=== PATIENT | male | born 1970 ===

== ENCOUNTER 2024-09-10 05:50 | Day surgery (SDC) | payer OTHER ==
[2024-09-04 08:05] LABS: BASO % 0.7 % (0.1-1.2); EOS # 0.16 (0.04-0.54); HEMATOCRIT 45.8 % (40.1-51.0); HEMOGLOBIN 15.4 g/dL (13.7-17.5); LYMPH # 2.75 (1.18-3.74); LYMPH % 33.9 % (19.3-53.1); MEAN CORPUSCULAR HEMOGLOBIN 29.7 pg (25.6-32.2); MONO # 0.76 (0.24-0.82); MONO % 9.4 % (4.7-12.5); NEUT # 4.37 (1.56-6.13); NEUT % 53.8 % (34.0-71.1); PLATELET COUNT 190 K/uL (163-369); RED BLOOD COUNT 5.18 M/uL (4.63-6.08); RED CELL DISTRIBUTION WIDTH 13.3 % (11.6-14.4)
[2024-09-04 08:15] LABS: PH,URINE 5.5 (5.0-8.0); URINE APPEARANCE Clear; URINE BILIRRUBIN Negative (NEGATIVE); URINE BLOOD Negative; URINE COLOR Yellow; URINE GLUCOSE Negative (NEGATIVE); URINE KETONE Negative (NEGATIVE); URINE LEUKOCYTE Negative; URINE NITRATE Negative; URINE PROTEIN Negative (NEGATIVE)
[2024-09-04 08:19] LABS: URINE BACTERIA 4.8 uL (0.0-1933); URINE WBC 2.3 uL (0.0-23.2)
[2024-09-04 08:26] LABS: INR 1.02; PARTIAL THROMBOPLASTIN TIME 24.3 SECONDS (22.0-34.0); PROTHROMBIN TIME 11.1 SECONDS (9.0-11.5)
[2024-09-04 08:33] LABS: URINE EPITHELIAL CELLS 0.6 uL (0.0-38.8); URINE RBC 1.1 uL (0.0-20.8)
[2024-09-04 08:46] VITALS: BP 143/87
[2024-09-04 09:08] LABS: ALBUMIN 3.9 gm/dL (3.4-5.0); BILIRUBIN TOTAL 0.48 mg/dL (0.3-1.2); CALCIUM 9.4 mg/dL (8.5-10.1); CREATININE SERUM 0.95 mg/dL (0.70-1.30); GFR 82.62; POTASSIUM 4.22 mEq/L (3.5-5.1); TOTAL PROTEIN 7.9 gm/dL (6.4-8.2)
[~2024-09-10] VITALS: Ht 177.8 cm; Wt 98.9 kg
[~2024-09-10 05:50] MED LIST: GLIPIZIDE5 MG PO; LOSARTAN-HCTZ1 EAC1 PO
[2024-09-10] MEDS ORDERED: CEFAZOLIN SODIUM 1,000 MG VIAL ONE (07:39)
[2024-09-10] MEDS ORDERED: LIDOCAINE HCL 1%/EPINEPHRINE 20ML VIAL IJ ONE ×2 (09:27→10:30)
[2024-09-10] MEDS ORDERED: BUPIVACAINE HCL/MPF 0.5% 30ML VIAL ONE (10:28)
[2024-09-10] MEDS ORDERED: KETOROLAC TROMETHAMINE 30 MG VIAL ONE (10:28)
[2024-09-10] MEDS ORDERED: BUPIVACAINE HCL 30 ML VIAL IJ ONE (10:30)
[2024-09-10] MEDS ORDERED: KETOROLAC TROMETHAMINE 60 MG VIAL IM ONE (10:30)
[2024-09-10] MEDS ORDERED: CEFAZOLIN SODIUM 1,000 MG VIAL IV ONE (10:30)
[2024-09-10] MEDS ORDERED: MORPHINE SULFATE 4 MG/ML VIAL IV ONE ×2 (11:40→12:10)
== END 2024-09-10 14:45 | disposition home or self-care (01) ==
LOC: CIR.AMB 05:50
PROVIDERS: ATTEND Orthopaedic Surgery
DX: M75.122 Complete rotator cuff tear or rupture of left shoulder, not specified as traumatic (principal); M75.22 Bicipital tendinitis, left shoulder; M24.112 Other articular cartilage disorders, left shoulder